=== PATIENT | female | born 1935 | race Caucasian/White ===

== ENCOUNTER 2024-08-13 11:59 | Inpatient (IN) ==
[2024-08-13] MEDS ORDERED: NITROGLYCERIN 1 GM OINT...G. TD ONE (12:08)
[2024-08-13] MEDS: NITROGLYCERIN 1 GM OINT...G. TD ONE (12:12)
--- NOTE | 2024-08-13 12:14 | Emergency Department Note ---
HPI - Chest Pain General Chief Complaint: Chest Pain Stated Complaint: CHEST PAIN Source: patient, caregiver and medical record Mode of arrival: tx staff Limitations: physical limitation History of Present Illness HPI narrative: She -[id number] white female brought in by the residential staff has been having chest pain for about 3 days states she is having some shortness of breath and some nausea she does have a history of a STEMI and pulmonary embolism we will work her for further evaluation MD complaint: Reports chest pain and chest discomfort Pertinent past history: Reports coronary artery disease and prior [place] Onset (ago): day(s) (3) Timing of current episode: Reports constant Prior episodes: Yes Onset: Reports during rest Pain location: Reports substernal Pain radiation: Reports none Severity: mild-moderate Quality: Reports aching Relieving factors: Reports nothing Exacerbating factors: Reports nothing Associated symptoms: Reports nausea and dyspnea Risk Factors Coronary artery disease risk factors: Reports hypertension and family history of CAD before age 50 Pulmonary embolism risk factors: Reports history of deep vein thrombosis and history of pulmonary embolism Related Data On Oral Contraceptives: No Home Medications Medication Instructions Recorded Confirmed lisinopril 10 mg tablet 10 mg PO DAILY 11/25/2307/18 omeprazole 40 mg capsule,delayed 40 mg PO DAILY 08/13/24 release apixaban 2.5 mg tablet (Eliquis) 2.5 mg PO Q12H 08/13/24 nystatin 100,000 unit/gram topical 1 applic topical BI D 08/13/24 08/13/24 powder ondansetron HCl 4 mg tablet 4 mg PO Q6H 08/13/2408/13 Allergies Allergy/AdvReac Type Severity Reaction Status Date / Time aspirin Allergy Mild Verified 08/13/24 12:20 Review of Systems Constitutional Denies: fever or chills Eyes Denies: change in vision, blurry vision or blind spots Ears, nose, mouth, and throat Denies: throat pain, neck pain or throat swelling Cardiovascular Reports: chest pain, shortness of breath with exertion and shortness of breath when lying down; Denies: palpitations, edema, swelling of feet/ankles or lightheadedness Respiratory Reports: shortness of breath; Denies: cough, wheezing, stridor or pain on inspiration Gastrointestinal Reports: nausea; Denies: abdominal pain, vomiting, coffee grounds in vomit or diarrhea Genitourinary Denies: painful urination Musculoskeletal Denies: back pain Integumentary/Breast Denies: rash or itching Neurological Denies: headache Psychiatric Denies: anxiety or mood swings Endocrine Denies: excessive urination Hematologic/Lymphatic Denies: easy bruising Exam Constitutional: normal general appearance, no apparent distress, average body habitus and no limitations Vital Signs - 24 hr 08/13/24 12:12 08/13/24 12:19 08/13/24 12:19 Temperature 98.1 F Pulse Rate 114 H Respiratory Rate 12 Blood Pressure 185/107 Pulse Oximetry 96 96 Oxygen Delivery Me thod Room Air Oxygen Flow Rate 08/13/24 12:30 08/13/24 12:45 08/13/24 12:52 Temperature Pulse Rate 104 H 101 H 103 H Respiratory Rate 18 Blood Pressure 159/91 161/99 161/99 Pulse Oximetry 96 96 Oxygen Delivery Me thod Room Air Oxygen Flow Rate 08/13/24 13:01 08/13/24 14:08 08/13/24 14:09 Temperature Pulse Rate 79 94 H Respiratory Rate 18 Blood Pressure 159/96 163/97 163/97 Pulse Oximetry 100 Oxygen Delivery Me thod Nasal Cannula Oxygen Flow Rate 2 HENMT: normocephalic, head/scalp atraumatic, hearing grossly normal bilaterally and external ears normal Eyes: PERRL, EOMs intact bilaterally, conjunctivae normal, no scleral icterus and no papilledema Neck/C-Spine: visual inspection normal, trachea midline, cervical spine nontender and cervical full ROM noted Lymph: no lymphadenopathy noted Chest: inspection of chest normal and palpation of chest normal Respiratory: breath sounds equal bilaterally, normal respiratory effort, clear to auscultation bilaterally, no wheezes and no rales Cardiovascular: normal heart rate noted, regular rhythm noted, no gallop, no rub, no murmur and no JVD Gastrointestinal: abdomen normal to inspection, abdomen soft to palpation, nontender to palpation and nontender to percussion Genitourinary: no CVA tenderness Back/Pelvis: spine normal to inspection Extremities: normal to inspection Neurology: mottler operator II-XII intact and GCS normal Psychiatry: mental status grossly normal, orientation abnormal (disoriented to person), (disoriented to place) and (disoriented to time), cooperative and affect normal Skin: skin color normal Course Vital Signs Vital signs: Vital Signs Blood Pressure 185/107 08/13/24 12:12 Temperature 98.1 F 08/13/24 12:19 Pulse Rate 94 H 08/13/24 14:08 Respiratory Rate 18 08/13/24 13:01 Blood Pressure 163/97 08/13/24 14:09 Pulse Oximetry 100 08/13/24 13:01 Oxygen Delivery Method Nasal Cannula 08/13/24 13:01 Oxygen Flow Rate 2 08/13/24 13:01 MDM - Chest Pain MDM Narrative Medical decision making narrative: pyelonephritis, chest pain, dementia, agitation Medical Records Data Attestation: I reviewed the patient's medical records. Lab Data Attestation: I reviewed the patient's lab results. Labs: Lab Results 08/13/24 08/13/24 08/13/24 Range/Units 12:08 12:08 12:12 WBC 10.5 H (4.3-9.3) K/uL RBC 5.1 (4.00-5.50) M/uL Hgb 15.3 (12.5-15.8) gm/dL Hct 47.5 H (35.9-46.7) % MCV 94.0 H (81.0-93.7) fl MCH 30.3 (27.6-32.2) pg MCHC 32.2 L (33.1-35.3) g/dl RDW 15.0 H (11.4-14.2) % Plt Count 301 (152-353) K/uL MPV 8.5 (6.9-10.8) fl Gran % 65.3 (47.8-71.3) % Lymph % (Auto) 28.4 (20.0-43.0) % [place] % (Auto) 5.4 (3.6-9.8) % Eos % (Auto) 0.6 (0.4-2.8) % Baso % (Auto) 0.3 (0.1-0.85) Lymph # (Auto) 3.0 (1.1-3.1) [place] # (Auto) 0.6 L (1.1-3.1) Eos # (Auto) 0.1 (0.0-0.2) Baso # (Auto) 0.0 (0.0-0.1) Absolute Gran (auto) 6.8 H (2.3-6.0) PT 13.2 (12.1-15.0) SECONDS PT Normal Control 13.7 INR 0.95 APTT 32.0 (23.9-36.7) SECONDS D-Dimer 611 H (100-600) ng/mL ABG pH 7.48 H (7.35-7.45) ABG pCO2 37 (35-45) mmHg ABG pO2 64 103 (60-100) mmHg ABG PO2/FiO2 Ratio 0.62 ABG HCO3 27.6 H (22-26) mmo1/L ABG Total CO2 28.7 mmo1/L ABG O2 Saturation 94 (92-100) % ABG Base Excess 4.0 H (-2-2) mmo1/L A-a O2 Gradient 39 mmHg Respiratory Index 0.6 (0-1) FiO2 21 % Sodium 137 (136-145) mmol/L Potassium 3.6 (3.6-5.2) mmol/L Chloride 106.0 (98-107) mmol/L Carbon Dioxide 27 (21-32) mmol/L Anion Gap 4.0 (4-14) mEq/L BUN 9 (7-18) mg/dL Creatinine 0.6 (0.6-1.3) mg/dL Estimated GFR 85.8 (>59.9) Glucose 94 (70-110) mg/dL Calcium 10.1 (8.5-10.1) mg/dL Magnesium 2.1 (1.8-2.4) mg/dL Total Bilirubin 0.90 (0.0-1.0) mg/dL AST 14 L (15-37) U/L ALT 12 L (30-65) U/L Alkaline Phosphatase 138 H (50-136) U/L Total Creatine Kinase 24 L (26-192) U/L Troponin I High Sens 13.20 (4.0-60.4) ng/L B-Natriuretic Peptide 151.0 H (0-100) pg/mL Total Protein 7.1 (6.4-8.2) g/dL Albumin 3.1 L (3.4-5.0) g/dL Amylase 28 (25-115) U/L Lipase 28.0 (16.0-77.0) U/L Urine Color (STRAW/YELL.) Urine Appearance (CLEAR) Ur Specific [place] (1.001-1.035) Urine Protein (NEGATIVE) Urine Glucose (UA) (NORMAL) Urine Ketones (NEGATIVE) Urine Occult Blood (NEG - TRACE) Urine Nitrite (NEGATIVE) Urine Bilirubin (NEGATIVE) Urine Urobilinogen (NORMAL) Ur Leukocyte Esterase (NEGATIVE) Urine RBC (0 - 5) Urine WBC ( 0 - 5) Ur Epithelial Cells (Few/HPF) Amorphous Sediment (Negative) Urine Bacteria (Negative) Urine Mucus (Negative) Urine Trichomonas (Negative) Urine Yeast (Negative) Fluid pH (5 - 9) COVID-19 ([place]) Not detected (Not Detectd) Influenza Type A Ag Negative (Negative) Influenza Type B Ag Negative (Negative) 08/13/24 Range/Units 12:42 WBC (4.3-9.3) K/uL RBC (4.00-5.50) M/uL Hgb (12.5-15.8) gm/dL Hct (35.9-46.7) % MCV (81.0-93.7) fl MCH (27.6-32.2) pg MCHC (33.1-35.3) g/dl RDW (11.4-14.2) % Plt Count (152-353) K/uL MPV (6.9-10.8) fl Gran % (47.8-71.3) % Lymph % (Auto) (20.0-43.0) % [place] % (Auto) (3.6-9.8) % Eos % (Auto) (0.4-2.8) % Baso % (Auto) (0.1-0.85) Lymph # (Auto) (1.1-3.1) [place] # (Auto) (1.1-3.1) Eos # (Auto) (0.0-0.2) Baso # (Auto) (0.0-0.1) Absolute Gran (auto) (2.3-6.0) PT (12.1-15.0) SECONDS PT Normal Control INR APTT (23.9-36.7) SECONDS D-Dimer (100-600) ng/mL ABG pH (7.35-7.45) ABG pCO2 (35-45) mmHg ABG pO2 (60-100) mmHg ABG PO2/FiO2 Ratio ABG HCO3 (22-26) mmo1/L ABG Total CO2 mmo1/L ABG O2 Saturation (92-100) % ABG Base Excess (-2-2) mmo1/L A-a O2 Gradient mmHg Respiratory Index (0-1) FiO2 % Sodium (136-145) mmol/L Potassium (3.6-5.2) mmol/L Chloride (98-107) mmol/L Carbon Dioxide (21-32) mmol/L Anion Gap (4-14) mEq/L BUN (7-18) mg/dL Creatinine (0.6-1.3) mg/dL Estimated GFR (>59.9) Glucose (70-110) mg/dL Calcium (8.5-10.1) mg/dL Magnesium (1.8-2.4) mg/dL Total Bilirubin (0.0-1.0) mg/dL AST (15-37) U/L ALT (30-65) U/L Alkaline Phosphatase (50-136) U/L Total Creatine Kinase (26-192) U/L Troponin I High Sens (4.0-60.4) ng/L B-Natriuretic Peptide (0-100) pg/mL Total Protein (6.4-8.2) g/dL Albumin (3.4-5.0) g/dL Amylase (25-115) U/L Lipase (16.0-77.0) U/L Urine Color Yellow (STRAW/YELL.) Urine Appearance Cloudy (CLEAR) Ur Specific [place] 1.010 (1.001-1.035) Urine Protein Trace (NEGATIVE) Urine Glucose (UA) Normal (NORMAL) Urine Ketones Negative (NEGATIVE) Urine Occult Blood Trace (NEG - TRACE) Urine Nitrite Positive (NEGATIVE) Urine Bilirubin Negative (NEGATIVE) Urine Urobilinogen Normal (NORMAL) Ur Leukocyte Esterase Positive (NEGATIVE) Urine RBC 0 - 2 (0 - 5) Urine WBC 10 - 25 ( 0 - 5) Ur Epithelial Cells Few (Few/HPF) Amorphous Sediment Moderate (Negative) Urine Bacteria Moderate (Negative) Urine Mucus Negative (Negative) Urine Trichomonas Negative (Negative) Urine Yeast Negative (Negative) Fluid pH 8.0 (5 - 9) COVID-19 ([place]) (Not Detectd) Influenza Type A Ag (Negative) Influenza Type B Ag (Negative) ABG Data Attestation: I personally reviewed and interpreted this ABG as follows: Interpretation: 7.48 H (7.35-7.45) ABG pCO2 37 (35-45) mmHgABG pO2 64 103 (60-100) mmHgABG PO2/FiO2 Ratio 0.62 ABG HCO3 27.6 H (22-26) mmo1/LABG Total CO2 28.7 mmo1/LABG O2 Saturation 94 (92-100) %ABG Base Excess 4.0 H (-2-2) mmo1/LA-a O2 Gradient 39 mmHgRespiratory Index 0.6 (0-1) FiO2 21 Imaging Data Radiologist's impression: HISTORY: c/pc/p; COMPARISON: November 25, 2023 FINDINGS: The trachea is midline. The cardiac silhouette is mildly enlarged. The lungs are clear without focal infiltrate or effusion. The bony thorax is unremarkable. IMPRESSION: No acute cardiopulmonary disease. THIS IS AN ELECTRONICALLY VERIFIED FINAL REPORT 08/13/2024 12:56 PM - Electronically signed by Madison Good MD ECG Data Attestation: I personally reviewed and interpreted this ECG as follows: (nsr) Discharge Plan Discharge Patient Disposition: Admitted As Observation Condition: Improved Clinical Impression: Chest pain, Pyelonephritis, Dementia, Agitation Time of Disposition: 14:23 [facility] Medical History (Updated 06/22/24 @ 11:54 by Britany Boone RN) Dysphagia, oropharyngeal phase Dysphagia, oral phase Metabolic encephalopathy Hearing difficulty Cellulitis NSTEMI (non-ST elevated myocardial infarction) GERD (gastroesophageal reflux disease) HTN (hypertension) Social History Smoking status: unknown if ever smoked Feel stressed/tense/nervous/anxious/difficulty sleeping: not at all Life stressors: other Life stressor details: 1 Due to disability, difficulty making decisions: No
[2024-08-13 12:24] LABS: Basophils%(Percent) Auto 0.3 (0.1-0.85); Eosinophils#(Absolute)Auto 0.1 (0.0-0.2); Eosinophils%(Percent) Auto 0.6 % (0.4-2.8); Granulocytes % - Auto 65.3 % (47.8-71.3); Granulocytes#(Absolute)- Auto 6.8 (2.3-6.0); Hematocrit 47.5 % (35.9-46.7); Monocytes #(Absolute)- Auto 0.6 (1.1-3.1); Monocytes %(Percent)- Auto 5.4 % (3.6-9.8); Platelet Count 301 K/uL (152-353); White Blood Count 10.5 K/uL (4.3-9.3)
[2024-08-13 12:35] LABS: Potassium 3.6 mmol/L (3.6-5.2)
[2024-08-13 12:43] LABS: INR 0.95
[2024-08-13] MEDS ORDERED: METOPROLOL TARTRATE 5 MG/5 ML VIAL INJ ONE (12:50)
[2024-08-13] MEDS: METOPROLOL TARTRATE 5 MG/5 ML VIAL INJ ONE (12:52)
[2024-08-13 12:55] LABS: Oxygen Saturation ABG 94 % (92-100); PCO2 ABG 37 mmHg (35-45); PO2 ABG 64 mmHg (60-100); pH ABG 7.48 (7.35-7.45)
[2024-08-13 12:56] LABS: Urine Appearance CLOUDY (CLEAR); Urine Blood TRACE (NEG - TRACE); Urine Color YELLOW (STRAW/YELL.); Urine Urobilinogen Normal (NORMAL)
[2024-08-13 12:57] LABS: Urine Amorphous Sediment Moderate (Negative); Urine Yeast Negative (Negative)
[2024-08-13] MEDS: LEVOFLOXACIN/D5W 500 MG/100 ML 500 MG/100 ML PIGGYBACK IV STA (13:17)
[2024-08-13] MEDS ORDERED: LORazepam 1 MG TABLET ONE (14:04)
[2024-08-13] MEDS: LORazepam 1 MG TABLET PO ONE (14:07)
[2024-08-13] MEDS ORDERED: DOCUSATE SODIUM 100 MG CAPSULE PO PRN (14:23)
[2024-08-13] MEDS ORDERED: MAGNESIUM, ALUMINUM HYDROXIDE 30 ML ORAL.SUSP PO PRN (14:23)
[2024-08-13] MEDS ORDERED: MAGNESIUM HYDROXIDE 400 MG/5 ML ORAL.SUSP PO PRN (14:23)
--- NOTE | 2024-08-13 15:09 | History & Physical Report ---
H&P: HPI History of Present Illness Chief complaint: PYELONEPHERITIS,CHEST PAIN,DEMENTIA, AGITATION Narrative: A 89 year old [facility] patient who has been falling multiple times and has had a recurrent UTI and dementia with behaviors. Patient complained of Chest pain with increased BP of 189/100 and pulse 101 onset just prior to arrival to the senior care. Denies any fever, Nausea, vomititng although history limited secondary to patient persistant, confusion and refusal of medications and hitting at the staf f on the Med Surg floor Review of Systems Status of ROS 10 or more systems reviewed and unremark able except as noted in history and below (limited secondary to patient agitation and confusion) Constitutional Denies: fever or chills Eyes Denies: change in vision, blurry vision or blind spots Ears, nose, mouth, and throat Denies: throat pain, neck pain or throat swelling Cardiovascular Reports: chest pain, shortness of breath with exertion and shortness of breath when lying down; Denies: palpitations, edema, swelling of feet/ankles or lightheadedness Respiratory Reports: shortness of breath; Denies: cough, wheezing, stridor or pain on inspiration Gastrointestinal Reports: nausea; Denies: abdominal pain, vomiting, coffee grounds in vomit or diarrhea Genitourinary Denies: painful urination Musculoskeletal Denies: back pain or neck pain Integumentary/Breast Denies: rash or itching Neurological Denies: headache Psychiatric Denies: anxiety or mood swings Endocrine Denies: excessive urination Hematologic/Lymphatic Denies: easy bruising Allergic/Immunologic Denies: throat swelling or wheezing [facility] Medical History (Updated 08/13/24 @ 18:23 by Mary Fuentes DO) Contusion Frequent falls Vascular dementia with behavior disturbance Dysphagia, oropharyngeal phase Dysphagia, oral phase Metabolic encephalopathy Hearing difficulty Cellulitis NSTEMI (non-ST elevated myocardial infarction) GERD (gastroesophageal reflux disease) HTN (hypertension) Social History Smoking status: unknown if ever smoked Problems where you live: no known problems Problems where you live details: 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 PT UNABLE TO ANSWER QUESTIONS APPROPRIATELY Highest level of school completed/degree received: decline to answer Feel stressed/tense/nervous/anxious/difficulty sleeping: decline to answer Life stressors: other Life stressor details: 1 Due to disability, difficulty making decisions: No Meds Home Medications and Allergies Home Medications Medication Instructions Recorded Confirmed Type lisinopril 10 mg tablet 10 mg PO DAILY 11/25/23 05/2 11/10 History omeprazole 40 mg capsule,delayed 40 mg PO DAILY 08/13/24 History release apixaban 2.5 mg tablet (Eliquis) 2.5 mg PO Q12H 08/13/24 History nystatin 100,000 unit/gram topical 1 applic topical BI D 08/13/24 08/13/24 History powder ondansetron HCl 4 mg tablet 4 mg PO Q6H 08/13/2408/13 History Allergies Allergy/AdvReac Type Severity Reaction Status Date / Time aspirin Allergy Mild Verified 08/13/24 12:20 Exam Constitutional: abnormal general appearance (disheveled), (chronically ill) and (frail appearing), no apparent distress, abnormal body habitus (cachectic) and (thin) and limitations noted (altered mental status) and (behavioral limitations) Vital Signs - 24 hr 08/13/24 12:12 08/13/24 12:17 08/13/24 12:19 Temperature 98.1 F Pulse Rate 111 H 114 H Respiratory Rate 18 12 Blood Pressure 185/107 188/104 185/107 Pulse Oximetry 96 96 Oxygen Delivery Me thod Oxygen Flow Rate 08/13/24 12:19 08/13/24 12:30 08/13/24 12:45 Temperature Pulse Rate 104 H 101 H Respiratory Rate 18 Blood Pressure 159/91 161/99 Pulse Oximetry 96 96 96 Oxygen Delivery Me thod Room Air Room Air Oxygen Flow Rate 08/13/24 12:52 08/13/24 13:01 08/13/24 13:15 Temperature Pulse Rate 103 H 79 78 Respiratory Rate 18 25 H Blood Pressure 161/99 159/96 151/94 Pulse Oximetry 100 100 Oxygen Delivery Me thod Nasal Cannula Oxygen Flow Rate 2 08/13/24 13:30 08/13/24 13:45 08/13/24 14:00 Temperature Pulse Rate 80 72 78 Respiratory Rate 23 25 H 15 Blood Pressure 162/92 158/90 163/97 Pulse Oximetry 100 98 98 Oxygen Delivery Me thod Oxygen Flow Rate 08/13/24 14:08 08/13/24 14:09 08/13/24 14:15 Temperature Pulse Rate 94 H 82 Respiratory Rate 22 Blood Pressure 163/97 163/97 161/99 Pulse Oximetry 97 Oxygen Delivery Me thod Oxygen Flow Rate 08/13/24 14:53 Temperature Pulse Rate 92 H Respiratory Rate Blood Pressure 152/90 Pulse Oximetry 98 Oxygen Delivery Me thod Nasal Cannula Oxygen Flow Rate 2 HENMT: normocephalic, head/scalp atraumatic, hearing grossly abnormal, external ears normal, oral mucous membranes abnormal and dentition abnormal Eyes: PERRL, EOMs intact bilaterally, conjunctivae normal, no scleral icterus, papilledema noted and periorbital findings normal Neck/C-Spine: abnormal to visual inspection, trachea midline, cervical spine nontender, cervical full ROM noted, supple, no meningeal signs and no carotid bruits Lymph: no lymphadenopathy noted and no lymphedema noted Chest: inspection of chest normal and palpation of chest normal Respiratory: breath sounds equal bilaterally, normal respiratory effort, clear to auscultation bilaterally, no wheezes and no rales Cardiovascular: normal heart rate noted, regular rhythm noted, no gallop, no rub, murmur noted, no JVD, no clicks and peripheral pulses 2+ throughout Gastrointestinal: abdomen normal to inspection, abdomen soft to palpation, nontender to palpation, normoactive bowel sounds and hernia noted Genitourinary: no CVA tenderness and bladder normal to palpation Back/Pelvis: spine abnormal to inspection, no thoracic spine tenderness, no lumbar spine tenderness, thoracic spine ROM normal and lumbar spine ROM normal Extremities: normal to palpation, no tenderness, full ROM and no joint enlargement Neurology: rehabilitation specialist II-XII intact, no focal motor deficit noted, sensory deficit noted, gait abnormality noted, speech abnormality noted, coordination normal and GCS normal Psychiatry: Mental Status Exam documented within this Exam's Psych section mental status grossly normal, orientation abnormal (disoriented to person), (disoriented to place) and (disoriented to time), thought process abnormality noted, uncooperative (belligerent) and (aggressive), affect abnormality noted (anxious) and (hostile) and psychomotor abnormality noted (agitated) and (disorganized) Feel stressed/tense/nervous/anxious/difficulty sleeping: decline to answer Skin: skin color normal, no rash, no lesions, ecchymosis noted, no wounds, no lacerations and skin turgor abnormal Assessment and Plan Assessment and Plan (1) UTI (urinary tract infection): Qualifiers: Urinary tract infection type: site unspecified Hematuria presence: without hematuria Qualified Code(s): N39.0 - Urinary tract infection, site not specified Code(s): N39.0 - Urinary tract infection, site not specified (2) Vascular dementia with behavior disturbance: Code(s): F01.518 - Vascular dementia, unspecified severity, with other behavioral disturbance (3) Hearing difficulty: Qualifiers: Laterality: bilateral Qualified Code(s): H91.93 - Unspecified hearing loss, bilateral Code(s): H91.90 - Unspecified hearing loss, unspecified ear (4) GERD (gastroesophageal reflux disease): Qualifiers: Esophagitis presence: with esophagitis Esophagitis bleeding: without hemorrhage Qualified Code(s): K21.00 - Gastro-esophageal reflux disease with esophagitis, without bleeding Code(s): K21.9 - Gastro-esophageal reflux disease without esophagitis (5) HTN (hypertension): Qualifiers: Hypertension type: primary hypertension Qualified Code(s): I10 - Essential (primary) hypertension Code(s): I10 - Essential (primary) hypertension (6) Frequent falls: Code(s): R29.6 - Repeated falls (7) Contusion: Qualifiers: Encounter type: subsequent encounter Thoracic wall location detail: bilateral Contusion area: thoracic wall Code(s): T14.8XXA - Other injury of unspecified body region, initial encounter Plan 0.9% NS at 100 ml pr hour daily weight zofran 4 mg IV every 4 hours got levaquin in the Er meropenum to be dosed by pharmacy on the floor Urology referral for recurrent UTI 1 on 1 monitor for safety until transfer to psyciatic unit or to another facility Results Labs Labs: CBC 08/13/24 Range/Units 12:12 WBC 10.5 H (4.3-9.3) K/uL RBC 5.1 (4.00-5.50) M/uL Hgb 15.3 (12.5-15.8) gm/dL Hct 47.5 H (35.9-46.7) % Plt Count 301 (152-353) K/uL Gran % 65.3 (47.8-71.3) % Lymph % (Auto) 28.4 (20.0-43.0) % [place] % (Auto) 5.4 (3.6-9.8) % Eos % (Auto) 0.6 (0.4-2.8) % Baso % (Auto) 0.3 (0.1-0.85) Lymph # (Auto) 3.0 (1.1-3.1) [place] # (Auto) 0.6 L (1.1-3.1) Eos # (Auto) 0.1 (0.0-0.2) Baso # (Auto) 0.0 (0.0-0.1) Absolute Gran (auto) 6.8 H (2.3-6.0) CMP 08/13/24 12:12 Sodium 137 Potassium 3.6 Chloride 106.0 Carbon Dioxide 27 BUN 9 Creatinine 0.6 Glucose 94 Calcium 10.1 Cardiac Enzymes 08/13/24 12:12 Total Creatine Kinase 24 L Liver Function 08/13/24 Range/Units 12:12 Total Bilirubin 0.90 (0.0-1.0) mg/dL AST 14 L (15-37) U/L ALT 12 L (30-65) U/L Alkaline Phosphatase 138 H (50-136) U/L Albumin 3.1 L (3.4-5.0) g/dL Urine 08/13/24 12:42 Urine Color Yellow Urine Appearance Cloudy Ur Specific [place] 1.010 Urine Protein Trace Urine Glucose (UA) Normal ABG ABG results: 08/13/24 12:08 ABG pH 7.48 H ABG pCO2 37 ABG pO2 103 ABG HCO3 27.6 H ABG Total CO2 28.7 ABG O2 Saturation 94 ABG Base Excess 4.0 H Attestation: I have reviewed the pertinent ABG results. Pulse Oximetry Attestation: I have reviewed the pertinent pulse oximetry results. Imaging Imaging ordered: Chest x-ray Attestation: I have reviewed the pertinent imaging results. Radiologist's impression: No Acute Cardiopulmonary process
[2024-08-13] MEDS: PANTOPRAZOLE SODIUM 40 MG TABLET.DR PO SCH (15:47)
[2024-08-13] MEDS: 0.9 % SODIUM CHLORIDE 1000 ML 1,000 ML IV SCH (15:48)
[2024-08-13] MEDS: APIXABAN 2.5 MG TABLET PO SCH (16:00)
[2024-08-13] MEDS: MEROPENEM IV SCH (18:19)
[2024-08-13] MEDS: SODIUM CHLORIDE MB 0.9% IV SCH (18:19)
[2024-08-13] MEDS ORDERED: diazePAM 10 MG/2 ML VIAL ONE (19:17)
[2024-08-13] MEDS: diazePAM 10 MG/2 ML VIAL IVP PRN (19:18)
[2024-08-13] MEDS: ACETAMINOPHEN 500 MG TABLET PO PRN (21:52)
[2024-08-13] MEDS: FAMOTIDINE 20 MG TABLET PO SCH (22:18)
[2024-08-14] MEDS: HALOPERIDOL LACTATE 5 MG/ML VIAL INJ ONE (02:43)
[2024-08-14] MEDS: ONDANSETRON HCL/PF 4 MG/2 ML VIAL INJ PRN (05:24)
[2024-08-14 05:41] LABS: Basophils%(Percent) Auto 0.3 (0.1-0.85); Eosinophils%(Percent) Auto 0.1 % (0.4-2.8); Granulocytes % - Auto 81.3 % (47.8-71.3); Granulocytes#(Absolute)- Auto 10.3 (2.3-6.0); Hematocrit 44.6 % (35.9-46.7); Mean Corpuscular Volume 91.2 fl (81.0-93.7); Monocytes #(Absolute)- Auto 0.8 (1.1-3.1); Monocytes %(Percent)- Auto 6.5 % (3.6-9.8); Platelet Count 284 K/uL (152-353); White Blood Count 12.7 K/uL (4.3-9.3)
[2024-08-14] MEDS: lisinopriL 10 MG TABLET PO SCH (10:31)
[2024-08-14] MEDS ORDERED: POTASSIUM CHLORIDE 20 MEQ TAB.ER.PRT PO ONE (11:00)
[2024-08-14] MEDS: POTASSIUM CHLORIDE IN WATER 10 MEQ/100 ML PIGGYBACK IV ONE (11:16)
[2024-08-14] MEDS ORDERED: POTASSIUM CHLORIDE IN WATER 10 MEQ/100 ML PIGGYBACK IV SCH (11:30)
[2024-08-14] MEDS: SODIUM CHLORIDE 0.9% IV ONE (13:02)
[2024-08-14] MEDS: POTASSIUM CHLORIDE IV ONE (13:02)
--- NOTE | 2024-08-14 14:22 | Progress Note ---
Exam Constitutional: Vital Signs - 24 hr 08/13/24 14:53 08/13/24 15:05 08/13/24 15:12 Temperature 98.1 F Pulse Rate 92 H 92 H Pulse Rate [Left] 84 Respiratory Rate 22 20 Blood Pressure 152/90 152/90 Blood Pressure [Le ft Arm] Pulse Oximetry 98 98 96 Oxygen Delivery Me thod Nasal Cannula Room Air Oxygen Flow Rate 2 08/13/24 15:12 08/13/24 19:25 08/13/24 23:32 Temperature 97.5 F L 96.7 F L 97.1 F L Pulse Rate Pulse Rate [Left] 84 82 91 H Respiratory Rate 20 17 15 Blood Pressure Blood Pressure [Le ft Arm] 157/86 160/82 152/75 Pulse Oximetry 96 97 97 Oxygen Delivery Me thod Room Air Room Air Oxygen Flow Rate 08/14/24 04:00 08/14/24 07:27 08/14/24 12:00 Temperature 98.4 F 97.3 F L 97.3 F L Pulse Rate Pulse Rate [Left] 99 H 115 H 119 H Respiratory Rate 16 19 19 Blood Pressure Blood Pressure [Le ft Arm] 161/88 153/99 159/101 Pulse Oximetry 97 95 95 Oxygen Delivery Me thod Room Air Room Air Room Air Oxygen Flow Rate Progress Note: Objective Labs Labs: CBC 08/14/24 Range/Units 05:40 WBC 12.7 H (4.3-9.3) K/uL RBC 4.9 (4.00-5.50) M/uL Hgb 14.8 (12.5-15.8) gm/dL Hct 44.6 (35.9-46.7) % Plt Count 284 (152-353) K/uL Gran % 81.3 H (47.8-71.3) % Lymph % (Auto) 11.8 L (20.0-43.0) % [place] % (Auto) 6.5 (3.6-9.8) % Eos % (Auto) 0.1 L (0.4-2.8) % Baso % (Auto) 0.3 (0.1-0.85) Lymph # (Auto) 1.5 (1.1-3.1) [place] # (Auto) 0.8 L (1.1-3.1) Eos # (Auto) 0.0 (0.0-0.2) Baso # (Auto) 0.0 (0.0-0.1) Absolute Gran (auto) 10.3 H (2.3-6.0) CMP 08/14/24 05:40 Sodium 138 Potassium 3.0 L Chloride 104.0 Carbon Dioxide 25 BUN 6 L Creatinine 0.6 Glucose 132 H Calcium 10.2 H Urine 08/13/24 12:42 Urine Color Yellow Urine Appearance Cloudy Ur Specific [place] 1.010 Urine Protein Trace Urine Glucose (UA) Normal Progress Note: A&P Assessment and Plan (1) UTI (urinary tract infection): Qualifiers: Urinary tract infection type: site unspecified Hematuria presence: without hematuria Qualified Code(s): N39.0 - Urinary tract infection, site not specified (2) Vascular dementia with behavior disturbance: (3) Hearing difficulty: Qualifiers: Laterality: bilateral Qualified Code(s): H91.93 - Unspecified hearing loss, bilateral (4) GERD (gastroesophageal reflux disease): Qualifiers: Esophagitis presence: with esophagitis Esophagitis bleeding: without hemorrhage Qualified Code(s): K21.00 - Gastro-esophageal reflux disease with esophagitis, without bleeding (5) HTN (hypertension): Qualifiers: Hypertension type: primary hypertension Qualified Code(s): I10 - Essential (primary) hypertension (6) Frequent falls: (7) Contusion: Qualifiers: Encounter type: subsequent encounter Contusion area: thoracic wall Thoracic wall location detail: bilateral Plan 0.9% NS at 100 ml pr hour daily weight zofran 4 mg IV every 4 hours got levaquin in the Er meropenum to be dosed by pharmacy on the floor Urology referral for recurrent UTI 1 on 1 monitor for safety until transfer to psyciatic unit or to another facility Fall Risk Details Christine Fall Scale Risk Level: High Fall Risk Current Medications: Current Medications Acetaminophen (Acetaminophen 500 Mg Tablet) 500 mg PO Q6H PRN PRN Reason: Fever OF 100.5 OR GREATER Al Hydroxide/Mg Hydroxide (Magnesium Hydroxide 400 Mg/5 Ml Oral.Susp) 400 mg PO DAILY PRN PRN Reason: Constipation Apixaban (Apixaban 2.5 Mg Tablet) 2.5 mg PO Q12H [facility] Last Admin: 08/14/24 05:24 Dose: 2.5 mg Diazepam (Diazepam 10 Mg/2 Ml Vial) 2.5 mg IVP Q4H PRN; Protocol PRN Reason: Agitation Last Admin: 08/14/24 01:30 Dose: 2.5 mg Docusate Sodium (Docusate Sodium 100 Mg Capsule) 100 mg PO DAILY PRN PRN Reason: Constipation Famotidine (Famotidine 20 Mg Tablet) 20 mg PO BID [facility] Last Admin: 08/14/24 10:31 Dose: Not Given Sodium Chloride (Sodium Chloride) 1,000 mls @ 75 mls/hr IV CONT [facility] Last Admin: 08/14/24 14:06 Dose: Not Given Meropenem 1,000 mg/ Sodium (Chloride) 50 mls @ 100 mls/hr IV Q12H [facility] Last Infusion: 08/14/24 07:20 Dose: Infused Potassium Chloride 40 meq/ (Sodium Chloride) 520 mls @ 125 mls/hr IV ONCE ONE Stop: 08/14/24 17:09 Last Admin: 08/14/24 13:02 Dose: 125 mls/hr Lisinopril (Lisinopril 10 Mg Tablet) 10 mg PO DAILY [facility] Last Admin: 08/14/24 10:31 Dose: Not Given Magnesium Hydroxide (Magnesium, Aluminum Hydroxide 30 Ml Oral.Susp) 30 ml PO DAILY PRN PRN Reason: Constipation Ondansetron HCl (Ondansetron Hcl/Pf 4 Mg/2 Ml Vial) 4 mg INJ Q6H PRN PRN Reason: Nausea Last Admin: 08/14/24 05:24 Dose: 4 mg Ondansetron HCl (Ondansetron Hcl 4 Mg Tablet) 4 mg PO Q6H [facility] Last Admin: 08/14/24 10:42 Dose: Not Given Pantoprazole Sodium (Pantoprazole Sodium 40 Mg Tablet.Dr) 40 mg PO DAILY [facility] Last Admin: 08/14/24 10:32 Dose: Not Given Time Spent With Patient Time: Total time spent is greater than 50% in coordination of care (as documented) at patient's floor/unit and/or counseling patient:
[2024-08-14] MEDS: ACETAMINOPHEN 650 MG SUPP.RECT PR PRN (20:30)
--- NOTE | 2024-08-15 10:52 | Progress Note ---
Progress Note: Subjective Subjective Interval history: 89 year old female here from [facility] for confusion, multiple falls recently, recurrent UTI, Worsening Dementia with behaviors. Today she denies any concerns however it is impossible to have intelligible conversation with patient due to confusion. She is in no physical distress at this time. UTI with culture pending. Exam Constitutional: abnormal general appearance (disheveled), (chronically ill) and (frail appearing), no apparent distress, abnormal body habitus (cachectic) and (thin) and limitations noted (altered mental status) and (behavioral limitations) Vital Signs - 24 hr 08/14/24 12:00 08/14/24 15:53 08/14/24 19:25 Temperature 97.3 F L 99.2 F 101.4 F H Pulse Rate [Left] 119 H 114 H 110 H Respiratory Rate 19 18 16 Blood Pressure [Le ft Arm] 159/101 191/97 152/86 Pulse Oximetry 95 95 90 L Oxygen Delivery Me thod Room Air Room Air Room Air 08/14/24 22:31 08/15/24 00:00 08/15/24 04:00 Temperature 98.3 F 97.8 F 98.0 F Pulse Rate [Left] 113 H 95 H Respiratory Rate 15 17 Blood Pressure [Le ft Arm] 129/86 134/82 Pulse Oximetry 96 95 Oxygen Delivery Ri thod Room Air Room Air 08/15/24 07:45 Temperature 97.1 F L Pulse Rate [Left] 109 H Respiratory Rate 19 Blood Pressure [Le ft Arm] 120/78 Pulse Oximetry 93 [facility] HEN[facility]: normocephalic, head/scalp atraumatic, hearing grossly abnormal, external ears normal, oral mucous membranes abnormal and dentition abnormal Eyes: PERRL, EOMs intact bilaterally, conjunctivae normal, no scleral icterus and periorbital findings normal Neck/C-Spine: visual inspection normal, trachea midline, cervical spine nontender, cervical full ROM noted, supple and no meningeal signs Lymph: no lymphadenopathy noted and no lymphedema noted Chest: inspection of chest normal and palpation of chest normal Respiratory: breath sounds equal bilaterally, normal respiratory effort, clear to auscultation bilaterally, no wheezes and no rales Cardiovascular: normal heart rate noted, regular rhythm noted, no gallop, no rub, no JVD, no clicks and peripheral pulses 2+ throughout Gastrointestinal: abdomen normal to inspection, abdomen soft to palpation, nontender to palpation, nontender to percussion and normoactive bowel sounds Genitourinary: no CVA tenderness Back/Pelvis: no thoracic spine tenderness, no lumbar spine tenderness, thoracic spine ROM normal and lumbar spine ROM normal Extremities: normal to inspection, normal to palpation, no tenderness, full ROM and no joint enlargement 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, no focal motor deficit noted, sensory deficit noted, gait abnormality noted, speech abnormality noted, coordination normal and GCS normal Psychiatry: Mental Status Exam documented within this Exam's Psych section mental status grossly normal, orientation abnormal (disoriented to person), (disoriented to place) and (disoriented to time), thought process abnormality noted, uncooperative (belligerent) and (aggressive), affect abnormality noted (anxious) and (hostile) and psychomotor abnormality noted (agitated) and (disorganized) Skin: skin color normal, no rash, no lesions, no ecchymosis noted, no wounds and no lacerations Progress Note: Objective Labs Labs: Urine 08/13/24 12:42 Urine Color Yellow Urine Appearance Cloudy Ur Specific [place] 1.010 Urine Protein Trace Urine Glucose (UA) Normal Progress Note: A&P Assessment and Plan (1) UTI (urinary tract infection): Qualifiers: Urinary tract infection type: site unspecified Hematuria presence: without hematuria Qualified Code(s): N39.0 - Urinary tract infection, site not specified (2) Vascular dementia with behavior disturbance: (3) Hearing difficulty: Qualifiers: Laterality: bilateral Qualified Code(s): H91.93 - Unspecified hearing loss, bilateral (4) GERD (gastroesophageal reflux disease): Qualifiers: Esophagitis presence: with esophagitis Esophagitis bleeding: without hemorrhage Qualified Code(s): K21.00 - Gastro-esophageal reflux disease with esophagitis, without bleeding (5) HTN (hypertension): Qualifiers: Hypertension type: primary hypertension Qualified Code(s): I10 - Essential (primary) hypertension (6) Frequent falls: (7) Contusion: Qualifiers: Encounter type: subsequent encounter Contusion area: thoracic wall Thoracic wall location detail: bilateral Plan 0.9% NS at 100 ml pr hour daily weight zofran 4 mg IV every 4 hours got levaquin in the Er meropenum to be dosed by pharmacy on the floor Urology referral for recurrent UTI 1 on 1 monitor for safety until transfer to psyciatic unit or to another facility Fall Risk Details Christine Fall Scale Risk Level: High Fall Risk Current Medications: Current Medications Acetaminophen (Acetaminophen 500 Mg Tablet) 500 mg PO Q6H PRN PRN Reason: Fever OF 100.5 OR GREATER Acetaminophen (Acetaminophen 650 Mg Supp.Rect) 650 mg CA Q4H PRN PRN Reason: Fever OF 100.5 OR GREATER Last Admin: 08/14/24 20:30 Dose: 650 mg Al Hydroxide/Mg Hydroxide (Magnesium Hydroxide 400 Mg/5 Ml Oral.Susp) 400 mg PO DAILY PRN PRN Reason: Constipation Apixaban (Apixaban 2.5 Mg Tablet) 2.5 mg PO Q12H [facility] Last Admin: 08/15/24 05:38 Dose: Not Given Diazepam (Diazepam 10 Mg/2 Ml Vial) 2.5 mg IVP Q4H PRN; Protocol PRN Reason: Agitation Last Admin: 08/14/24 14:25 Dose: 2.5 mg Docusate Sodium (Docusate Sodium 100 Mg Capsule) 100 mg PO DAILY PRN PRN Reason: Constipation Famotidine (Famotidine 20 Mg Tablet) 20 mg PO BID [facility] Last Admin: 08/15/24 09:40 Dose: Not Given Sodium Chloride (Sodium Chloride) 1,000 mls @ 75 mls/hr IV CONT [facility] Last Admin: 08/14/24 22:44 Dose: 75 mls/hr Meropenem 1,000 mg/ Sodium (Chloride) 50 mls @ 100 mls/hr IV Q12H [facility] Last Infusion: 08/15/24 06:05 Dose: Infused Lisinopril (Lisinopril 10 Mg Tablet) 10 mg PO DAILY [facility] Last Admin: 08/15/24 09:40 Dose: Not Given Magnesium Hydroxide (Magnesium, Aluminum Hydroxide 30 Ml Oral.Susp) 30 ml PO DAILY PRN PRN Reason: Constipation Ondansetron HCl (Ondansetron Hcl/Pf 4 Mg/2 Ml Vial) 4 mg INJ Q6H PRN PRN Reason: Nausea Last Admin: 08/14/24 22:44 Dose: 4 mg Ondansetron HCl (Ondansetron Hcl 4 Mg Tablet) 4 mg PO Q6H [facility] Last Admin: 08/15/24 05:51 Dose: Not Given Pantoprazole Sodium (Pantoprazole Sodium 40 Mg Vial) 40 mg IVP DAILY [facility] Time Spent With Patient Time: Total time spent is greater than 50% in coordination of care (as documented) at patient's floor/unit and/or counseling patient: 40
[2024-08-15] MEDS: PANTOPRAZOLE SODIUM 40 MG VIAL IVP SCH (12:10)
[2024-08-15 16:42] LABS: Basophils%(Percent) Auto 0.3 (0.1-0.85); Eosinophils%(Percent) Auto 0.2 % (0.4-2.8); Granulocytes % - Auto 82.3 % (47.8-71.3); Granulocytes#(Absolute)- Auto 10.6 (2.3-6.0); Hematocrit 42.9 % (35.9-46.7); Mean Corpuscular Volume 90.7 fl (81.0-93.7); Monocytes #(Absolute)- Auto 0.8 (1.1-3.1); Monocytes %(Percent)- Auto 6.2 % (3.6-9.8); Platelet Count 247 K/uL (152-353); White Blood Count 12.9 K/uL (4.3-9.3)
[2024-08-15 16:53] LABS: Potassium 3.1 mmol/L (3.6-5.2)
[2024-08-15] MEDS ORDERED: ALBUMIN HUMAN 25% 100 ML IV SCH (17:15)
[2024-08-15] MEDS: POTASSIUM CL 20 MEQ/100 ML SOL 40 MEQ/200 ML PIGGYBACK IV ONE (17:25)
[2024-08-15] MEDS: POTASSIUM CL 20 MEQ/100 ML SOL 20 MEQ/100 ML PIGGYBACK IV ONE (18:07)
[2024-08-15] MEDS: ALBUMIN HUMAN 25% 100 ML IV SCH (20:12)
[2024-08-16 05:19] LABS: Basophils #(Absolute) Auto 0.1 (0.0-0.1); Basophils%(Percent) Auto 0.5 (0.1-0.85); Eosinophils%(Percent) Auto 0.3 % (0.4-2.8); Granulocytes % - Auto 69.9 % (47.8-71.3); Granulocytes#(Absolute)- Auto 7.8 (2.3-6.0); Hematocrit 33.5 % (35.9-46.7); Mean Corpuscular Volume 90.3 fl (81.0-93.7); Monocytes #(Absolute)- Auto 0.8 (1.1-3.1); Monocytes %(Percent)- Auto 7.2 % (3.6-9.8); Platelet Count 187 K/uL (152-353); White Blood Count 11.1 K/uL (4.3-9.3)
[2024-08-16 05:43] LABS: Potassium 3.4 mmol/L (3.6-5.2)
[2024-08-16] MEDS: APIXABAN 2.5 MG TABLET PO SCH (08:52)
[2024-08-16] MEDS: ALBUMIN HUMAN 25% 100 ML IV SCH (08:53)
--- NOTE | 2024-08-16 10:36 | Progress Note ---
Progress Note: Subjective Subjective Interval history: 89 year old female here from [facility] for confusion, multiple falls recently, recurrent UTI, Worsening Dementia with behaviors. Today she denies any concerns however it is impossible to have intelligible conversation with patient due to confusion. She is in no physical distress at this time. UTI with culture pending. 08/16/24 Today the patient was alert and oriented when I went in to see her. She denied any complaints. Exam Constitutional: abnormal general appearance (disheveled), (chronically ill) and (frail appearing), no apparent distress, abnormal body habitus (cachectic) and (thin) and limitations noted (altered mental status) and (behavioral limitations) Vital Signs - 24 hr 08/15/24 12:00 08/15/24 16:00 08/15/24 20:00 Temperature 98.2 F 98.0 F 99.0 F Pulse Rate [Left] 109 H 116 H 111 H Respiratory Rate 19 21 19 Blood Pressure [Le ft Arm] 149/86 159/96 152/77 Pulse Oximetry 95 94 L 94 L Oxygen Delivery Me thod Room Air Room Air Room Air 08/16/24 00:00 08/16/24 04:00 08/16/24 07:54 Temperature 99.7 F H 98.0 F 97.7 F Pulse Rate [Left] 95 H 81 80 Respiratory Rate 17 17 19 Blood Pressure [Le ft Arm] 157/90 159/96 158/82 Pulse Oximetry 95 93 L 94 L Oxygen Delivery Pr thod Room Air Room Air Room Air HENMT: normocephalic, head/scalp atraumatic, hearing grossly abnormal, external ears normal, oral mucous membranes abnormal and dentition abnormal Eyes: PERRL, EOMs intact bilaterally, conjunctivae normal, no scleral icterus, papilledema noted and periorbital findings normal Neck/C-Spine: visual inspection normal, trachea midline, cervical spine nontender, cervical full ROM noted, supple, no meningeal signs and no carotid bruits Lymph: no lymphadenopathy noted and no lymphedema noted Chest: inspection of chest normal and palpation of chest normal Respiratory: breath sounds equal bilaterally, normal respiratory effort, clear to auscultation bilaterally, no wheezes and no rales Cardiovascular: normal heart rate noted, regular rhythm noted, no gallop, no rub, murmur noted, no JVD, no clicks and peripheral pulses 2+ throughout Gastrointestinal: abdomen normal to inspection, abdomen soft to palpation, nontender to palpation, nontender to percussion, normoactive bowel sounds and hernia noted Genitourinary: no CVA tenderness and bladder normal to palpation Back/Pelvis: spine abnormal to inspection, no thoracic spine tenderness, no lumbar spine tenderness, thoracic spine ROM normal and lumbar spine ROM normal Extremities: normal to inspection, normal to palpation, no tenderness, full ROM and no joint enlargement 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, no focal motor deficit noted, sensory deficit noted, gait abnormality noted, speech abnormality noted, coordination normal and GCS normal Psychiatry: Mental Status Exam documented within this Exam's Psych section mental status grossly normal, orientation abnormal (disoriented to person), (disoriented to place) and (disoriented to time), thought process abnormality noted, uncooperative (belligerent) and (aggressive), affect abnormality noted (anxious) and (hostile) and psychomotor abnormality noted (agitated) and (disorganized) Skin: skin color normal, no rash, no lesions, no ecchymosis noted, no wounds, no lacerations and skin turgor abnormal Progress Note: Objective Labs Labs: CBC 08/15/24 08/16/24 Range/Units 16:34 05:10 WBC 12.9 H 11.1 H (4.3-9.3) K/uL RBC 4.7 3.7 L (4.00-5.50) M/uL Hgb 14.1 11.3 L (12.5-15.8) gm/dL Hct 42.9 33.5 L (35.9-46.7) % Plt Count 247 187 (152-353) K/uL Gran % 82.3 H 69.9 (47.8-71.3) % Lymph % (Auto) 11.0 L 22.1 (20.0-43.0) % [place] % (Auto) 6.2 7.2 (3.6-9.8) % Eos % (Auto) 0.2 L 0.3 L (0.4-2.8) % Baso % (Auto) 0.3 0.5 (0.1-0.85) Lymph # (Auto) 1.4 2.5 (1.1-3.1) [place] # (Auto) 0.8 L 0.8 L (1.1-3.1) Eos # (Auto) 0.0 0.0 (0.0-0.2) Baso # (Auto) 0.0 0.1 (0.0-0.1) Absolute Gran (auto) 10.6 H 7.8 H (2.3-6.0) CMP 08/15/24 08/16/24 16:34 05:10 Sodium 138 141 Potassium 3.1 L 3.4 L Chloride 106.0 111.0 H Carbon Dioxide 28 30 BUN 9 8 Creatinine 0.6 0.5 L Glucose 122 H 86 Calcium 9.6 9.7 Liver Function 08/15/24 08/16/24 Range/Units 16:34 05:10 Total Bilirubin 0.92 0.76 (0.0-1.0) mg/dL AST 35 22 (15-37) U/L ALT 13 L 11 L (30-65) U/L Alkaline Phosphatase 105 76 (50-136) U/L Albumin 2.5 L 2.3 L (3.4-5.0) g/dL Urine 08/13/24 12:42 Urine Color Yellow Urine Appearance Cloudy Ur Specific [place] 1.010 Urine Protein Trace Urine Glucose (UA) Normal Progress Note: A&P Assessment and Plan (1) UTI (urinary tract infection): Qualifiers: Urinary tract infection type: site unspecified Hematuria presence: without hematuria Qualified Code(s): N39.0 - Urinary tract infection, site not specified (2) Vascular dementia with behavior disturbance: (3) Hearing difficulty: Qualifiers: Laterality: bilateral Qualified Code(s): H91.93 - Unspecified hearing loss, bilateral (4) GERD (gastroesophageal reflux disease): Qualifiers: Esophagitis presence: with esophagitis Esophagitis bleeding: without hemorrhage Qualified Code(s): K21.00 - Gastro-esophageal reflux disease with esophagitis, without bleeding (5) HTN (hypertension): Qualifiers: Hypertension type: primary hypertension Qualified Code(s): I10 - Essential (primary) hypertension (6) Frequent falls: (7) Contusion: Qualifiers: Encounter type: subsequent encounter Contusion area: thoracic wall Thoracic wall location detail: bilateral (8) Hypoalbuminemia: Plan Stop IVF for now, patient eating and drinking daily weight zofran 4 mg IV every 4 hours Urine culutre pending meropenum to be dosed by pharmacy on the floor Urology referral for recurrent UTI 1 on 1 monitor for safety until transfer to psyciatic unit or to another facility Replenish Albumin Repeat CBC, CMP in am Fall Risk Details Christine Fall Scale Risk Level: High Fall Risk Current Medications: Current Medications Acetaminophen (Acetaminophen 500 Mg Tablet) 500 mg PO Q6H PRN PRN Reason: Fever OF 100.5 OR GREATER Last Admin: 08/15/24 17:01 Dose: 500 mg Acetaminophen (Acetaminophen 650 Mg Supp.Rect) 650 mg AL Q4H PRN PRN Reason: Fever OF 100.5 OR GREATER Last Admin: 08/14/24 20:30 Dose: 650 mg Al Hydroxide/Mg Hydroxide (Magnesium Hydroxide 400 Mg/5 Ml Oral.Susp) 400 mg PO DAILY PRN PRN Reason: Constipation Apixaban (Apixaban 2.5 Mg Tablet) 2.5 mg PO Q12H [facility] Last Admin: 08/16/24 08:52 Dose: 2.5 mg Diazepam (Diazepam 10 Mg/2 Ml Vial) 2.5 mg IVP Q4H PRN; Protocol PRN Reason: Agitation Last Admin: 08/15/24 17:32 Dose: 2.5 mg Docusate Sodium (Docusate Sodium 100 Mg Capsule) 100 mg PO DAILY PRN PRN Reason: Constipation Famotidine (Famotidine 20 Mg Tablet) 20 mg PO BID [facility] Last Admin: 08/16/24 08:50 Dose: 20 mg Sodium Chloride (Sodium Chloride) 1,000 mls @ 75 mls/hr IV CONT [facility] Last Admin: 08/16/24 01:04 Dose: 75 mls/hr Meropenem 1,000 mg/ Sodium (Chloride) 50 mls @ 100 mls/hr IV Q12H [facility] Last Infusion: 08/16/24 07:46 Dose: Infused Albumin Human (Albumin Human 25%) 100 mls @ 60 mls/hr IV ONCE [facility] Last Infusion: 08/15/24 21:54 Dose: Infused Albumin Human (Albumin Human 25%) 100 mls @ 60 mls/hr IV ONCE [facility] Last Admin: 08/16/24 08:53 Dose: 60 mls/hr Lisinopril (Lisinopril 10 Mg Tablet) 10 mg PO DAILY [facility] Last Admin: 08/16/24 08:51 Dose: 10 mg Magnesium Hydroxide (Magnesium, Aluminum Hydroxide 30 Ml Oral.Susp) 30 ml PO DAILY PRN PRN Reason: Constipation Ondansetron HCl (Ondansetron Hcl/Pf 4 Mg/2 Ml Vial) 4 mg INJ Q6H PRN PRN Reason: Nausea Last Admin: 08/14/24 22:44 Dose: 4 mg Pantoprazole Sodium (Pantoprazole Sodium 40 Mg Vial) 40 mg IVP DAILY [facility] Last Admin: 08/16/24 08:51 Dose: 40 mg Time Spent With Patient Time: Total time spent is greater than 50% in coordination of care (as documented) at patient's floor/unit and/or counseling patient: 35
[2024-08-17 08:02] VITALS: BP 147/84; PULSE 85; RESP 19; TEMP 97.8
[2024-08-17] MEDS: LINEZOLID 600 MG TABLET PO SCH ×2 (09:15→11:02)
--- NOTE | 2024-08-17 10:46 | Discharge Summary ---
DS: Providers Provider Date of admission: 08/13/24 14:35 Primary care physician: Mary Fuentes DO Attending physician on discharge: Charo Benítez Discharging clinician: Charo Benítez Anticipated date of discharge: 08/17/24 DS: Diagnosis Discharge Diagnosis (1) UTI (urinary tract infection): Qualifiers: Urinary tract infection type: site unspecified Hematuria presence: without hematuria Qualified Code(s): N39.0 - Urinary tract infection, site not specified (2) Vascular dementia with behavior disturbance: (3) Hearing difficulty: Qualifiers: Laterality: bilateral Qualified Code(s): H91.93 - Unspecified hearing loss, bilateral (4) GERD (gastroesophageal reflux disease): Qualifiers: Esophagitis presence: with esophagitis Esophagitis bleeding: without hemorrhage Qualified Code(s): K21.00 - Gastro-esophageal reflux disease with esophagitis, without bleeding (5) HTN (hypertension): Qualifiers: Hypertension type: primary hypertension Qualified Code(s): I10 - Essential (primary) hypertension (6) Frequent falls: (7) Contusion: Qualifiers: Encounter type: subsequent encounter Contusion area: thoracic wall Thoracic wall location detail: bilateral (8) Hypoalbuminemia: Plan Discharge back to [facility] Start Linezolid PO today for urine culture which was positive for Enterococcus Faecialis. First dose Linezolid given here and next two doses sent with patient. Will need rest of 14 day dose. Patient feeling better and back to her baseline mental status for the past 24 hours. DS: Summary Hospital Course Hospital Course: Treated with Meropenem IV for UTI. In meantime with hydration patient mental status has returned to her baseline. Today urine culture resulted positive for Enterococcus f which is sensitive to PO Linezolid. Start on PO Linezolid and discharge. Status at Discharge Overall status at discharge: patient is back to baseline Time Spent with Patient Time attestation: Total time spent providing and/or coordinating discharge services: 50 Exam Constitutional: normal general appearance, no apparent distress, abnormal body habitus (cachectic) and (thin) and no limitations Vital Signs - 24 hr 08/16/24 11:45 08/16/24 16:00 08/16/24 20:00 Temperature 97.7 F 97.7 F 98.8 F Pulse Rate [Left] 89 90 101 H Respiratory Rate 19 19 18 Blood Pressure [Le ft Arm] 168/85 154/85 155/84 Pulse Oximetry 95 96 97 Oxygen Delivery Me thod Room Air Room Air Room Air 08/17/24 00:00 08/17/24 04:00 08/17/24 08:00 Temperature 97.9 F 98.1 F 97.8 F Pulse Rate [Left] 86 72 85 Respiratory Rate 16 17 19 Blood Pressure [Le ft Arm] 150/87 158/84 147/84 Pulse Oximetry [address] thod Room Air Room Air Room Air HENMT: normocephalic, head/scalp atraumatic, hearing grossly abnormal, external ears normal and oral mucous membranes normal Eyes: PERRL, EOMs intact bilaterally, conjunctivae normal and no scleral icterus Neck/C-Spine: visual inspection normal, trachea midline, cervical spine nontender, cervical full ROM noted, supple, no meningeal signs and no carotid bruits Lymph: no lymphadenopathy noted and no lymphedema noted Chest: inspection of chest normal and palpation of chest normal Respiratory: breath sounds equal bilaterally, normal respiratory effort, clear to auscultation bilaterally, no wheezes, no rales, no retractions and no use of accessory muscles Cardiovascular: normal heart rate noted, regular rhythm noted, no gallop, no rub, murmur noted, no JVD, no clicks and peripheral pulses 2+ throughout Gastrointestinal: abdomen normal to inspection, abdomen soft to palpation, nontender to palpation and normoactive bowel sounds Genitourinary: deferred Back/Pelvis: spine normal to inspection Extremities: normal to inspection, normal to palpation, no tenderness, full ROM and no joint enlargement Neurology: welt sole layer II-XII intact, no movement abnormality noted, no focal motor deficit noted, no sensory deficits noted, gait normal, speech normal and coordination normal Psychiatry: Mental Status Exam documented within this Exam's Psych section mental status grossly normal, oriented x3, thought process normal, cooperative and affect normal Skin: skin color normal, no rash, no lesions, no ecchymosis noted, no wounds, no lacerations and skin turgor normal DS: Data Data Completed and Pending Labs on day of discharge: Labs from last 24 hours 08/16/24 15:20 Albumin 2.9 L Preliminary micro results at discharge 08/16/24 05:10 Blood Culture - Preliminary Blood - Arterial Draw Discharge Plan Discharge Disposition: [facility] Condition: Improved Anticipated Discharge Date/Time: 08/17/24 10:45 Discharge Medications: New linezolid 600 mg Tablet 600 mg PO Q12H 14 Days Qty: 28 0RF Continued lisinopril 10 mg tablet 10 mg PO DAILY omeprazole 40 mg capsule,delayed release(DR/EC) 40 mg PO DAILY Eliquis 2.5 mg tablet 2.5 mg PO Q12H nystatin 100,000 unit/gram powder 1 applic TOPICAL BID ondansetron HCl 4 mg tablet 4 mg PO Q6H Discharge Orders: Discharge Order (Routine); Ordered 08/17/24 Ordered By: Charo Benítez Activity: increase activity as tolerated Diet: advance to your usual diet Hospital Course: Treated with Meropenem IV for UTI. In meantime with hydration patient mental status has returned to her baseline. Today urine culture resulted positive for Enterococcus f which is sensitive to PO Linezolid. Start on PO Linezolid and discharge. Print Language: [place] Forms: Portal/Health Info Access Inst Follow-Ups: Mary Fuentes DO [Primary Care Provider, Medical] Discharge Location: [place]
== END 2024-08-17 11:34 | DRG 690 ==
LOC: MS 11:59 → ED 11:59 → OBSVTOIN 14:35 → MS 15:05
PROVIDERS: ADMIT Family Medicine; ATTEND Family Medicine
DX: Z91.81 History of falling; H91.93 Unspecified hearing loss, bilateral; Z88.8 Allergy status to other drugs, medicaments and biological substances; N39.0 Urinary tract infection, site not specified; R13.11 Dysphagia, oral phase; B95.2 Enterococcus as the cause of diseases classified elsewhere; Z79.899 Other long term (current) drug therapy; F01.518 Vascular dementia, unspecified severity, with other behavioral disturbance; T14.8XXA Other injury of unspecified body region, initial encounter; I10 Essential (primary) hypertension; I25.2 Old myocardial infarction; R29.6 Repeated falls; W19.XXXA Unspecified fall, initial encounter; K21.00 Gastro-esophageal reflux disease with esophagitis, without bleeding